=== PATIENT | female | born 1960 | race Caucasian/White ===

== ENCOUNTER 2018-05-31 11:32 | Emergency (ER) | payer OTHER ==
[~2018-05-31] VITALS: Ht 170.2 cm; Wt 86.2 kg
[~2018-05-31 11:32] MED LIST: ANASTROZOLE1 MG PO; ATIVAN2 M1 PO; GABAPENTIN600 MG PO; IBRERSANTAN; NEURONTIN300 MG PO
[2018-05-31] MEDS ORDERED: AVAPRO150 MG (11:48)
[2018-05-31] MEDS ORDERED: ALLEGRA ALLERG180 MG (11:49)
[2018-05-31] MEDS ORDERED: ZANTAC300 MG (11:49)
[2018-05-31] MEDS ORDERED: ANASTROZOLE1 MG (11:52)
== END 2018-05-31 18:10 | disposition home or self-care (01) ==
LOC: ER 11:32
DX: R10.32 Left lower quadrant pain (principal)

== ENCOUNTER 2018-08-09 08:55 | Day surgery (SDC) | payer OTHER ==
[~2018-08-09 08:55] MED LIST changes: +ALLEGRA ALLERG180 MG; +ANASTROZOLE1 MG; +AVAPRO150 MG; +ZANTAC300 MG
== END 2018-08-09 14:00 | disposition home or self-care (01) ==
LOC: AMB-ENDOS 08:55
DX: K64.1 Second degree hemorrhoids (principal)

== ENCOUNTER 2018-09-18 09:15 | Inpatient (IN) | payer OTHER ==
[~2018-09-18] VITALS: Ht 170.2 cm; Wt 92.1 kg
[2018-09-18] MEDS ORDERED: PROVENTIL HFA6.7 GM (10:42)
== END 2018-09-27 17:51 | disposition home or self-care (01) | DRG 330 ==
LOC: ADM 09:15 → EDSTATUS 09:15 → SURH 09-24 06:15 → O/R 09-24 06:15 → SURH 09-24 09:15
PROVIDERS: ADMIT Colon & Rectal Surgery
PROC: 0D1N0Z4 Bypass Sigmoid Colon to Cutaneous, Open Approach (ICD-10-PCS; 2018-09-24)
PROC: 0WQF0ZZ Repair Abdominal Wall, Open Approach (ICD-10-PCS; 2018-09-24)
PROC: 0DJD8ZZ Inspection of Lower Intestinal Tract, Via Natural or Artificial Opening Endoscopic (ICD-10-PCS; 2018-09-24)
PROC: 0DTN0ZZ Resection of Sigmoid Colon, Open Approach (ICD-10-PCS; principal; 2018-09-24 23:00)
DX: K57.32 Diverticulitis of large intestine without perforation or abscess without bleeding (principal); K43.3 Parastomal hernia with obstruction, without gangrene; M48.061 Spinal stenosis, lumbar region without neurogenic claudication; I11.9 Hypertensive heart disease without heart failure; E66.8 Other obesity; Z85.3 Personal history of malignant neoplasm of breast

== ENCOUNTER 2018-11-06 10:22 | Emergency (ER) | payer OTHER ==
[~2018-11-06] VITALS: Ht 170.2 cm; Wt 93.0 kg
[~2018-11-06 10:22] MED LIST changes: +PROVENTIL HFA6.7 GM
== END 2018-11-06 16:02 | disposition home or self-care (01) ==
LOC: ER 10:22
DX: K94.02 Colostomy infection (principal); L03.311 Cellulitis of abdominal wall; B96.29 Other Escherichia coli [E. coli] as the cause of diseases classified elsewhere; Y83.3 Surgical operation with formation of external stoma as the cause of abnormal reaction of the patient, or of later complication, without mention of misadventure at the time of the procedure; Y82.8 Other medical devices associated with adverse incidents; Y92.89 Other specified places as the place of occurrence of the external cause

== ENCOUNTER 2018-12-11 11:27 | Emergency (ER) | payer OTHER ==
[~2018-12-11] VITALS: Ht 170.2 cm; Wt 86.2 kg
== END 2018-12-11 17:26 | disposition home or self-care (01) ==
LOC: ER 11:27
DX: R10.84 Generalized abdominal pain (principal)

== ENCOUNTER 2019-12-12 16:35 | Emergency (ER) | payer OTHER ==
[~2019-12-12] VITALS: Ht 170.2 cm; Wt 88.5 kg
[2019-12-12] MEDS ORDERED: COZAAR100 MG (16:47)
[2019-12-12] MEDS ORDERED: HYDRODIURIL12.5 MG (16:48)
== END 2019-12-12 20:57 | disposition home or self-care (01) ==
LOC: ER 16:35
DX: K62.5 Hemorrhage of anus and rectum (principal); K44.9 Diaphragmatic hernia without obstruction or gangrene; K76.0 Fatty (change of) liver, not elsewhere classified